=== PATIENT | female | born 1950 | race Caucasian/White ===

== ENCOUNTER 2018-03-02 09:51 | Outpatient (CLI) | payer OTHER, MEDICARE ==
[~2018-03-02 09:51] MED LIST: ANXIETY MED; LOVA10TA55 PO
== END 2018-03-02 20:52 | disposition home or self-care (01) ==
LOC: SMA 09:51
PROVIDERS: ATTEND Family Medicine
DX: Z12.31 Encounter for screening mammogram for malignant neoplasm of breast (principal)
CPT/HCPCS: 77067

== ENCOUNTER 2019-03-08 15:09 | Outpatient (CLI) | payer OTHER, MEDICARE | END 2019-03-08 19:17 | disposition home or self-care (01) | LOC: SMA 15:09 | PROVIDERS: ATTEND Family Medicine | DX: Z12.31 Encounter for screening mammogram for malignant neoplasm of breast (principal) | CPT/HCPCS: 77067 ==

== ENCOUNTER 2019-04-25 10:04 | Outpatient (CLI) | payer OTHER, MEDICARE | END 2019-04-25 21:13 | disposition home or self-care (01) | LOC: SUS 10:04 | PROVIDERS: ATTEND Family Medicine | DX: N63.11 Unspecified lump in the right breast, upper outer quadrant (principal) | CPT/HCPCS: 76642 ==

== ENCOUNTER → 2021-02-27 | Outpatient (CLI) | payer OTHER, MEDICARE | END | disposition home or self-care (01) | LOC: SMA 14:35 | DX: Z12.31 Encounter for screening mammogram for malignant neoplasm of breast (principal) | CPT/HCPCS: 77067 ==